=== PATIENT | female | born 1990 | race Hispanic/Latino ===

== ENCOUNTER 2017-11-02 14:06 | Emergency (ER) | payer OTHER ==
[~2017-11-02] VITALS: Ht 157.5 cm; Wt 79.4 kg
[2017-11-02] MEDS ORDERED: METOPROLOL TART25 MG PO (15:28)
== END 2017-11-02 15:10 | disposition left against medical advice (07) ==
LOC: FSED 14:06
DX: R00.2 Palpitations (principal); R06.09 Other forms of dyspnea; R42 Dizziness and giddiness
CPT/HCPCS: 93005; 99283